=== PATIENT | male | born 2005 | race American Indian/Alaskan Native ===

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

== ENCOUNTER 2024-02-22 19:54 | Emergency (ER) | payer SELFPAY ==
[2024-02-22 20:10] VITALS: BP 131/71; PULSE 69
[2024-02-22] MEDS: Mupirocin Oint 22 GM Tube TOP ONE (20:24)
[2024-02-22] MEDS: Ketorolac 30 MG/ML SDV IM ONE (20:24)
== END 2024-02-22 20:39 | disposition home or self-care (01) ==
LOC: DL.ED 19:54
DX: T23.121A Burn of first degree of single right finger (nail) except thumb, initial encounter (principal); X10.2XXA Contact with fats and cooking oils, initial encounter; Y92.511 Restaurant or cafe as the place of occurrence of the external cause; Y99.0 Civilian activity done for income or pay
CPT/HCPCS: 96372; 99283; A9270-GY; J1885

== ENCOUNTER 2024-04-12 19:00 | Emergency (ER) | payer SELFPAY ==
[2024-04-12 19:27] VITALS: BP 150/73; PULSE 105
== END 2024-04-12 19:29 | disposition home or self-care (01) ==
LOC: DL.ED 19:00
DX: M62.838 Other muscle spasm (principal); M79.671 Pain in right foot; M79.672 Pain in left foot
CPT/HCPCS: 82947; 99284

== ENCOUNTER 2024-07-17 16:38 | Emergency (ER) | payer MEDICAID ==
[2024-07-17 17:03] VITALS: BP 142/82; PULSE 71
== END 2024-07-17 17:10 | disposition home or self-care (01) ==
LOC: DL.ED 16:38
DX: Z02.89 Encounter for other administrative examinations (principal)
CPT/HCPCS: 99282; 99283